=== PATIENT | female | born 1935 | race Caucasian/White ===

== ENCOUNTER 2018-04-06 09:58 | Observation (INO) | payer OTHER ==
--- NOTE | 2018-04-06 10:28 | EDPHY ---
HPI/HX/ROS/PE/MDM Narrative: CHIEF COMPLAINT: Increased weakness HISTORY OF PRESENT ILLNESS: The patient is a non-communicative 83 y/o female with a history of dementia arriving with her family for increased weakness. She is usually ambulatory and will get up at night. Over the past few weeks she has been walking "less vigorously". Around 2:30 AM, her noticed she was having difficulty walking. He tried to help support her but ultimately her legs gave out and she slumped to the floor. Her didn't want to wake their daughter so he provided her water and cared for her until 7:00AM and had their daughter help him get her up. Her daughter provided her with more water to try and rehydrate her as previous instances of similar symptoms have been due to dehydration. Her denies any fever, vomiting, indications she is in pain , indications she has difficulty urinating, or any other associated symptoms. No fever, chills, chest pain, shortness of breath, palpitations, vomiting, diarrhea, urinary complaints, headache, lightheadedness. REVIEW OF SYSTEMS: Aside from elements discussed in the HPI, a comprehensive 10-point review of systems was reviewed and is negative. PAST MEDICAL HISTORY: Dementia now non-communicative, hypertension SOCIAL HISTORY: and daughter at bedside, moved from [facility], lives in [place] VITAL SIGNS: Reviewed by me GENERAL: Elderly female, alert, appears in no respiratory distress. HEENT: Atraumatic. Eyes: No icterus, no injection. Mouth: Slightly dry mucous membranes. No erythema or lesions. Neck: supple with no adenopathy. LUNGS: Clear to auscultation bilaterally, no wheezes, rhonchi or rales. CARDIAC: Regular rate and rhythm, no rubs, murmurs or gallops. ABDOMEN: Soft, nontender, nondistended, bowel sounds normal. BACK: No CVA tenderness. Clumped vesicular/erythematous rash to the right of the lumbar spine. EXTREMITIES: Superficial linear lesions to upper thigh. No edema. Range of motion is normal throughout. NEURO: Alert and oriented, grossly nonfocal. SKIN: Warm and dry, no rash. PSYCHIATRIC: Normal mentation, no agitation. ED Course: 12-LEAD EKG: Please see the full report in [facility]. My interpretation: Sinus rhythm, nonspecific intraventricular conduction delay, minimal ST depression in anterolateral leads The patient presents with increased weakness. Similar episodes have been due to dehydration. On exam, she has a clumped vesicular rash on her right lumbar region, possibly shingles. Plan for CBC, basic metabolic panel, liver enzymes, lipase, urinalysis, EKG, chest X-ray to evaluate etiology of symptoms, and 1 L NS fluids for possible dehydration. 12:10 PM - Her workup is so far not indicative of a clear etiology. Her chest X- ray shows new ground glass regions in lungs from 20 months ago. Her labs show some electrolyte abnormalities and a white count. Plan for BNP and possible admit. I will have a nurse attempt to walk her to determine if her symptoms have improved with fluids. Shingles are still possible diagnosis. 1:00 PM- She as not been able to walk easily. I suggest she be admitted. 1:20 PM- I spoke to the hospitalist for admission for this patient. Dr. Gaviria will be the admitting physicians. The family agrees to this course of action. 2:00PM- CT ordered to identify a possible etiology. 2:40PM - CT was negative. - Data Points Laboratory Results: Laboratory Results 04/06/18 10:47 04/06/18 10:04 Medications Given: Amlodipine Besylate (Norvasc) 5 mg PO DAILY PAULA Stop: 10/04/18 08:59 Last Admin: 04/07/18 10:04 Dose: 5 mg Atorvastatin Calcium (Lipitor) 20 mg PO DAILY PAULA Stop: 10/04/18 08:59 Last Admin: 04/07/18 10:04 Dose: 20 mg Donepezil HCl (Aricept) 10 mg PO HS PAULA Stop: 10/03/18 20:59 Last Admin: 04/06/18 19:46 Dose: 10 mg Enoxaparin Sodium (Lovenox) 40 mg SC DAILY PAULA Stop: 10/04/18 08:59 Last Admin: 04/07/18 10:04 Dose: 40 mg Mirtazapine (Remeron) 7.5 mg PO HS PAULA Stop: 10/03/18 20:59 Last Admin: 04/06/18 19:45 Dose: 7.5 mg Trazodone HCl (Trazodone) 150 mg PO HS PAULA Stop: 10/03/18 20:59 Last Admin: 04/06/18 19:45 Dose: 150 mg Discontinued Medications Sodium Chloride (Ns) 1,000 mls @ 0 mls/hr IV ONCE ONE; Wide Open PRN Reason: Protocol Stop: 04/06/18 10:38 Last Admin: 04/06/18 11:24 Dose: 1,000 mls General Time Seen by Provider: 04/06/18 10:03 Initial Vital Signs: Initial Vital Signs Temperature (C) 36.4 C 04/06/18 10:06 Heart Rate 92 04/06/18 10:06 Respiratory Rate 16 04/06/18 10:06 Blood Pressure 149/105 H 04/06/18 10:06 O2 Sat (%) 94 04/06/18 10:06 O2 Delivery Mode Room Air Allergies/Adverse Reactions: No Known Allergies Allergy (Unverified 04/06/18 10:08) Home Medications: Medication Instructions Recorded Atorvastatin Calcium [Lipitor 20 20 mg PO DAILY 04/06/18 mg (*)] Donepezil HCl [Aricept 5 MG (*)] 10 mg PO HS 04/06/18 MIRTAZAPINE [Remeron 7.5 mg] 7.5 mg PO HS 04/06/18 amLODIPine BESYLATE [Norvasc 5 mg 5 mg PO DAILY 04/06/18 (*)] traZODone [traZODONE 50MG (*)] 150 mg PO HS 04/06/18 Acetaminophen [Tylenol 325mg (*)] 650 mg PO Q6 PRN tab 04/07/18 Departure - Departure Disposition: [facility] Inpatient Acute Clinical Impression: Weakness, Unable to walk, Electrolyte abnormality, SINGLES POSSIBLE Elevated white blood cell count Qualifiers: Leukocytosis type: unspecified Qualified Code(s): D72.829 - Elevated white blood cell count, unspecified Condition: Fair Report Scribed for: Karen Li Report Scribed by: Elza Beck Date of Report: 04/06/18 Time of Report: 13:07 Physician Review and Approval Statement: Portions of this note were transcribed by a medical collections. I personally performed a history, physical exam, medical decision making, and confirmed accuracy of information the transcribed note.
[2018-04-06] MEDS ORDERED: NS 1,000 ML IV ONE (10:37)
--- NOTE | 2018-04-06 10:57 | CPEKG ---
Heart Rate: 94 RR Interval: 638 P-R Interval: 192 QRSD Interval: 110 QT Interval: 400 QTC Interval: 501 P Elgin: 49 QRS Elgin: -29 T Wave Elgin: -18 EKG Severity - ABNORMAL ECG - EKG Impression: SINUS RHYTHM EKG Impression: NONSPECIFIC INTRAVENTRICULAR CONDUCTION DELAY EKG Impression: MINIMAL ST DEPRESSION, ANTEROLATERAL LEADS Electronically Signed By: Karen Li 06-Apr-2018 15:19:09
[2018-04-06 11:16] LABS: PLATELET COUNT 307 10^3/uL (150-400)
[2018-04-06] MEDS ORDERED: ONDANSETRON 4 MG/2 ML VIAL IVP PRN (14:55)
[2018-04-06] MEDS ORDERED: ACETAMINOPHEN 325 MG TAB PO PRN (14:55)
--- NOTE | 2018-04-06 15:16 | GHP ---
[f rep st] HISTORY AND PHYSICAL DATE OF ADMISSION: 04/06/2018 CHIEF COMPLAINT: Unable to walk. HISTORY OF PRESENT ILLNESS: This is an 83-year-old, nonverbal female with history of frontal tempora l lobe dementia and does not talk, as well as hypertension and dyslipidemia who is brought into the e mergency department by her family after she abruptly was unable to walk starting early this morning. Patient has been in her usual state of health. Her family reports that she has been eating normally . She is usually quite active, walking a couple miles per day. Around 2:30 this morning, she was no hugh to have difficulty walking. They were hoping she would get better, but she did not. She has not had any nausea or vomiting. She did have a loose stool yesterday. She has not complained of any ab dominal pain; however the patient's family states that she does not ever complain of any pain. PAST MEDICAL HISTORY: Frontal temporal lobe dementia, noncommunicative, hypertension, dyslipidemia. PAST SURGICAL HISTORY: Appendectomy as a child. HOME MEDICATIONS: Reviewed. Refer to Co-Work for details. ALLERGIES: No known drug allergies. SOCIAL HISTORY: She speaks Togolese. She lives with her daughter and . There is no history of alcohol, tobacco, or illicit drug use. FAMILY HISTORY: Reviewed and noncontributory. REVIEW OF SYSTEMS: Comprehensive 10-point review of systems was attempted, but unobtainable due to t he patient's noncommunicative status. PHYSICAL EXAMINATION: VITAL SIGNS: Blood pressure 139/109 heart rate 99, respiratory rate 16, O2 sa turation 92% on room air, temperature afebrile. GENERAL: No acute distress. HEAD: Normocephalic, atraumatic. EYES: PERRLA. Sclerae anicteric. MOUTH: Moist membranes. EARS: Tympanic membranes intact without signs of infection. NECK: Supple. No lymphadenopathy. CARDIOVASCULAR: S1, S2. No JVD. No lower extremity edema. PULMONARY: Lungs are clear. No wheezes, rales, or rhonchi. ABDOM EN: Soft, nontender, nondistended. No guarding or rebound tenderness. Negative Aguilera sign. EXTRE MITIES: No clubbing or cyanosis. NEURO: Cranial nerves 2-12 appear to be intact. Patient moves al l extremities. Face is symmetric. Patient does not follow commands making a thorough neurologic exa m difficult. SKIN: There is a cluster of erythematous plaques on the right back at the level of T10 dermatome and also 1 erythematous spot at the T8 dermatome. DIAGNOSTIC DATA: WBC is 15.2, hemoglobin 13.6, hematocrit 39.7, platelets 307. Sodium 135, potassiu m 5.1, chloride 19, BUN 21, creatinine 0.8, glucose 138. AST 120, ALT 29. Troponin 0.012. Alkaline phosphatase elevated at 312, total protein 8.7, albumin 5.1. BNP was normal. Lipase was normal. U A: 1+ blood, but otherwise unremarkable. Chest x-ray, which I reviewed and personally visualized, shows diffuse peribronchial thickening with new ground-glass opacities in the left lung apex and left base. EKG, which I visualized and personally interpreted, sinus rhythm, rate 94 beats per minute. No acute ischemic changes. Computer read minimal ST depression in the anterior lateral leads, which I doubt is contributing to her presentation. ASSESSMENT: This is an 83-year-old female with history of dementia and unable to communicate present ing with: 1. Weakness and unable to walk of unclear etiology. See below. 2. Leukocytosis without any obvious source of infection. 3. Uncontrolled hypertension. 4. Mildly elevated potassium. 5. Elevated AST with elevated total bilirubin and alkaline phosphatase concerning for biliary diseas e. 6. Ground-glass opacities in the left lung apex and left base of unclear significance. Question asp iration. 7. Erythematous macules on back. Doubt shingles given that there on multiple dermatomes, but will d o a viral culture to further address this. 8. Anterolateral ST depression. PLAN: 1. Place on observation. 2. Abdominal ultrasound to evaluate for stones. 3. Monitor potassium. 4. Will hold off on antibiotics for now pending further workup. We will send blood cultures. 5. Varicella culture. 6. Consider chest CT and further workup for aspiration as indicated. We will ask for a Speech Thera py consultation. 7. The patient's family requests that she be DNR status. /[id number]/MODL
[2018-04-06] MEDS ORDERED: MIRTAZAPINE 15 MG TAB PO SCH (21:00)
[2018-04-06] MEDS ORDERED: DONEPEZIL HCL 5 MG TAB PO SCH (21:00)
[2018-04-07 05:15] LABS: PLATELET COUNT 291 10^3/uL (150-400)
[2018-04-07] MEDS ORDERED: amLODIPine BESYLATE 5 MG TAB PO SCH (09:00)
[2018-04-07] MEDS ORDERED: ENOXAPARIN 40 MG/0.4 ML SYR SC SCH (09:00)
[2018-04-07] MEDS ORDERED: ATORVASTATIN CALCIUM 20 MG TAB PO SCH (09:00)
[2018-04-07 11:57] VITALS: BP 122/98
--- NOTE | 2018-04-07 13:26 | PDIAF ---
- Diagnosis Diagnosis: weakness Code Status: Do Not Resuscitate - Medication Management Discharge Medications: Medications to Continue on Transfer Atorvastatin Calcium [Lipitor 20 mg (*)] 20 mg PO DAILY 04/06/18 [Last Taken ] Donepezil HCl [Aricept 5 MG (*)] 10 mg PO HS 04/06/18 [Last Taken 04/05/18] MIRTAZAPINE [Remeron 7.5 mg] 7.5 mg PO HS 04/06/18 [Last Taken 04/05/18] amLODIPine BESYLATE [Norvasc 5 mg (*)] 5 mg PO DAILY 04/06/18 [Last Taken ] traZODone [traZODONE 50MG (*)] 150 mg PO HS 04/06/18 [Last Taken 04/05/18] Acetaminophen [Tylenol 325mg (*)] 650 mg PO Q6 PRN tab 04/07/18 [Last Taken Unknown] Discharge Medications: Refer to the Discharge Home Medication list for PRN reason. PICC Care - Routine: N/A - Orders Services needed: Home Care, Physical Therapy, Occupational Therapy Home Care Face to Face: I certify that this patient was under my care and that I had the required [id number] encounter meeting the encounter requirements on the discharge day. My findings support the fact that the patient is homebound as defined in Home Care Face to Face Continued: CMS Chapter 7 Medicare Benefits Manual 30.1.1 , The condition of the patient is such that there exists a normal inability to leave home and consequently, leaving home would require a considerable and taxing effort. Isolation Type: Airborne Isolation, Contact Isolation Diet Recommendation: no restrictions on diet Diet Texture: Regular Texture Diet, Thin Liquids, Meds Whole in Puree - Follow Up Care Current Providers and Referrals: Patient,NotPresent [Unknown] - As per Instructions
--- NOTE | 2018-04-07 14:01 | GDS ---
[f rep st] DISCHARGE SUMMARY DISCHARGE DIAGNOSES: 1. Weakness. 2. Leukocytosis. 3. Elevated liver enzymes. 4. Uncontrolled hypertension. 5. Dehydration. STUDIES AND PROCEDURES: 1. CT of the head. 2. Abdominal ultrasound. PHYSICAL EXAM: GENERAL: The patient is alert. VITAL SIGNS: Afebrile at 36.5, pulse of 94, respira tory rate 16. Blood pressure is 122/98. She is saturating greater than 90% on room air. I have seen and evaluated the patient on the day of discharge. HOSPITAL COURSE: The patient is an 83-year-old female who presented to the emergency room with compl aints of inability to walk. She was evaluated and diagnosed with: 1. Dehydration. During this hospitalization, she received some IV fluids. Her dehydration has reso lved. 2. Weakness, with inability to walk. The etiology of this was unclear at the time of admission. Ho wever, the patient has been evaluated by Physical Therapy, as well as Occupational therapy, and it ap pears that she is close to her baseline. It is recommended that she obtain a walker, which her brett rowan will do for her. She will also have home care in the outpatient setting. 3. Leukocytosis. There is no obvious source of infection. The patient possibly has a viral etiolog y or secondary to the patient's dehydration. Her leukocytosis is improving and almost returned to no rmal. 4. Uncontrolled hypertension. This is resolved. 5. Mild elevated AST and total bilirubin. The patient received an abdominal ultrasound that was wit hin normal limits. No signs of stones or abnormalities. Her liver enzymes have resolved today. 6. Erythematous macules. These have tested negative for VSV and is likely bug bite or other etiolog y. No further intervention warranted. DISPOSITION: The patient will be discharged home with her and her daughter. Home health car e has been arranged with Physical Therapy, as well as Occupational Therapy. Further evaluation will be done in the outpatient setting by the patient's primary care physician. DISCHARGE MEDICATIONS: Please refer to EMR form. I have not discontinued the patient's previously p rescribed home medications to the best of my knowledge. /[id number]/MODL
--- NOTE | 2018-04-07 16:48 | ASMTCMCOM ---
CM Note CM Note Notes: Spoke w/pt's daughter and , they are agreeable to home care, pt has dementia but has family around 24/7. CM sent referrals to homecare agencies that take [employer]. DC Plan: Homecare Date Signed: 04/07/2018 02:44 PM Electronically Signed By:Carolin Fuller RN
--- NOTE | 2018-04-07 16:48 | ASMTLACE ---
LACE Length of stay for Answers: 1 day current admission Comorbidities - select Answers: Dementia all that apply Other Notes: HTN # of Emergency department Answers: 1-2 visits in the last 6 months Score: 6 Date Signed: 04/07/2018 04:47 PM Electronically Signed By:Carolin Fuller RN
--- NOTE | 2018-04-08 16:31 | ASMTCMCOM ---
CM Note CM Note Notes: CM attempted to find a [facility] that will accept [employer], unsuccessful today. CM left message for patient's and also notified patient's daughter of above. Daughter states she will speak with her father and follow-up with CM should they need further assistance with this. She indicated they may call [employer] and ask for some guidance. Date Signed: 04/08/2018 04:30 PM Electronically Signed By:Josi Giang RN
== END 2018-04-07 15:46 | disposition home health service (06) ==
LOC: EDUNIT# → F3N 14:48
PROVIDERS: ADMIT Family Medicine; ATTEND Hospitalist
DX: R53.1 Weakness (principal); R26.2 Difficulty in walking, not elsewhere classified; D72.829 Elevated white blood cell count, unspecified; R94.5 Abnormal results of liver function studies; L53.9 Erythematous condition, unspecified; I10 Essential (primary) hypertension; E86.0 Dehydration; E87.8 Other disorders of electrolyte and fluid balance, not elsewhere classified; R91.8 Other nonspecific abnormal finding of lung field; F03.90 Unspecified dementia, unspecified severity, without behavioral disturbance, psychotic disturbance, mood disturbance, and anxiety; E78.5 Hyperlipidemia, unspecified; Z66 Do not resuscitate
CPT/HCPCS: 70450; 71046; 76705; 92610; 93005; 97116; 97162; 97166; G0378; G8987; G8988; J1650; 87798-90

== ENCOUNTER 2018-11-29 15:13 | Inpatient (IN) | payer OTHER ==
--- NOTE | 2018-11-29 15:49 | EDPHY ---
H & P Stated Complaint: fall not sure if was syncope facial trauma pt with dementia at baseline Time Seen by Provider: 11/29/18 15:46 - Personal History Current Tetanus Diphtheria and Acellular Pertussis (TDAP): Yes - Medical/Surgical History Hx Asthma: No Hx Chronic Respiratory Disease: No Hx Diabetes: No Hx Cardiac Disease: Yes Hx Renal Disease: No Hx Cirrhosis: No Hx Alcoholism: No Hx HIV/AIDS: No Hx Splenectomy or Spleen Trauma: No Other PMH: High cholesterol, HTN, dementia and anxiety - Social History Smoking Status: Never smoked Constitutional: Initial Vital Signs Temperature (C) 36.6 C 11/29/18 15:21 Heart Rate 109 H 11/29/18 15:21 Respiratory Rate 18 11/29/18 15:21 Blood Pressure 163/99 H 11/29/18 15:21 O2 Sat (%) 92 11/29/18 15:21 O2 Delivery Mode Room Air Allergies/Adverse Reactions: No Known Allergies Allergy (Verified 11/29/18 15:20) Home Medications: Medication Instructions Recorded Atorvastatin Calcium [Lipitor 20 20 mg PO DAILY 04/06/18 mg (*)] Donepezil HCl [Aricept 5 MG (*)] 10 mg PO HS 04/06/18 MIRTAZAPINE [Remeron 7.5 mg] 7.5 mg PO HS 04/06/18 amLODIPine BESYLATE [Norvasc 5 mg 5 mg PO DAILY 04/06/18 (*)] traZODone [traZODONE 50MG (*)] 150 mg PO HS 04/06/18 Acetaminophen [Tylenol 325mg (*)] 650 mg PO Q6 PRN tab 04/07/18 Medical Decision Making - Diagnostics Imaging Results: Imaging Impressions Head CT 11/29/18 15:49 Impression: 1. Displaced nasal bone fracture. 2. Age-appropriate generalized cerebral volume loss with sequela of chronic microvascular ischemic disease. Findings and recommendations discussed with Leno Little MD's tutoring assistant at 1641 hour, 11/29/2018. Imaging: Discussed imaging studies w/ call or contact centre manager Radiologist, I viewed and interpreted images myself ED Course/Re-evaluation: CHIEF COMPLAINT: Fall, nose injury HISTORY OF PRESENT ILLNESS: The patient is an 83 y/o female with a history of dementia arriving with her for evaluation of a facial injury secondary to a fall this afternoon. Her says, "from her dementia she has no capacity to defend herself and just goes down" without catching herself. This is the second time this has happened in the last month or so. Today they were walking on a concrete trail when she "just went down." She did not report preceding symptoms like chest pain or lightheadedness to her . She did not lose consciousness per , but was "stunned" and it took about 10 minutes for her to roll over and get up off the ground. They have walked for many years without issues like this previously. He does not know why she falls and it does not sound like she's been evaluated for these falls before. No apparent tooth injury, extremity injuries, weakness, paresthesias. No report of recent illness. No anticoagulant use. History comes from due to patient' s dementia. REVIEW OF SYSTEMS: A comprehensive 10 system review of systems is otherwise negative aside from elements mentioned in the history of present illness and medical decision making. PHYSICAL EXAM: HR, BP, O2 Sat, RR. Temp noted General Appearance: Alert, well hydrated, and non-toxic appearing. Head: Atraumatic without scalp tenderness or obvious injury Eyes: Pupils equal, round, reactive to light and accommodation, EOMI, no trauma , no injection. Ears: Clear bilaterally, no perforation, normal landmarks Nose: Macerated wound to bridge of nose, bleeding from both nares. Throat: There is no erythema or exudates, no lesions, normal tonsils, mucus membranes moist. Neck: Supple, non-tender, no lymphadenopathy. Respiratory: No retractions, no distress, no wheezes, and no accessory muscle use. Lungs are clear to auscultation bilaterally. Cardiovascular: Regular rate and rhythm, no murmurs, rubs, or gallops. Good capillary refill all extremities. Gastrointestinal: Abdomen is soft, non-tender, non-distended, no masses, no rebound, no guarding, no peritoneal signs. Musculoskeletal: Normal active ROM of all extremities, atraumatic. Dried blood on both hands. Neurological: Alert. Standing in the room. Moving all extremities. At baseline mentation per . Skin: No rashes, good turgor, no nodules on palpation. PAST MEDICAL HISTORY: Dementia, hypertension, high cholesterol, anxiety PAST SURGICAL HISTORY: Noncontributory SOCIAL HISTORY: at bedside. Lives in [place]. Retired. DIAGNOSTICS/PROCEDURES/CRITICAL CARE TIME: The 12 lead EKG was interpreted by myself. See hard copy and/or "tracemaster" electronic copy for interpretation. Head CT: nasal fracture, no intracranial hemorrhage. DIFFERENTIAL DIAGNOSIS: The differential diagnosis for the patient's head injury included but was not limited to concussion, skull fracture, intra- parenchymal contusion, subarachnoid, subdural and epidural hematoma. MEDICAL DECISION MAKING: This is an 83 y/o female with dementia who presents with nasal injuries secondary to a fall of unknown cause this afternoon. This is her second fall like this in the last month and her states she does not use her hands to catch herself when these happen. She has a macerated nasal bridge with blood from both nares. No other trauma noted. Apart from baseline confusion, no focal neuro deficits noted. Plan for IV, labs, head CT, EKG, and likely admission. 50mg IV Ketamine and 1mg IV Ativan ordered prior to head CT so patient can lie still. Spoke with hospitalist service. Dr. Ramos accepts admission. 1718: Consulted with MOISE Schmitz, ENT. They will consult during admission and decide on antibiotics for open fracture. - Data Points Laboratory Results: Laboratory Results 11/29/18 16:00 11/29/18 16:00 11/29/18 11/29/18 11/29/18 16:00 16:00 16:00 WBC RBC Hgb Hct MCV MCH MCHC RDW Plt Count MPV Neut % (Auto) Lymph % (Auto) [place] % (Auto) Eos % (Auto) Baso % (Auto) Nucleat RBC Rel Count Absolute Neuts (auto) Absolute Lymphs (auto) Absolute Monos (auto) Absolute Eos (auto) Absolute Basos (auto) Absolute Nucleated RBC Immature Gran % Immature Gran # PT 12.1 SEC SEC (12.0-15.0) INR 0.87 (0.83-1.16) APTT 21.7 SEC L SEC (23.0-38.0) Sodium 138 mEq/L mEq/L (135-145) Potassium 4.2 mEq/L mEq/L (3.5-5.2) Chloride 109 mEq/L mEq/L (97-110) Carbon Dioxide 21 mEq/l L mEq/l (22-31) Anion Gap 8 mEq/L mEq/L (6-14) BUN 25 mg/dL H mg/dL (7-23) Creatinine 1.0 mg/dL mg/dL (0.6-1.0) Estimated GFR 53 Glucose 140 mg/dL H mg/dL (70-100) Calcium 10.1 mg/dL mg/dL (8.5-10.4) Troponin I Pending 11/29/18 16:00 WBC 11.34 10^3/uL H 10^3/uL (3.80-9.50) RBC 4.45 10^6/uL 10^6/uL (4.18-5.33) Hgb 14.0 g/dL g/dL (12.6-16.3) Hct 41.6 % % (38.0-47.0) MCV 93.5 fL fL (81.5-99.8) MCH 31.5 pg pg (27.9-34.1) MCHC 33.7 g/dL g/dL (32.4-36.7) RDW 12.7 % % (11.5-15.2) Plt Count 356 10^3/uL 10^3/uL (150-400) MPV 11.2 fL fL (8.7-11.7) Neut % (Auto) 77.1 % H % (39.3-74.2) Lymph % (Auto) 12.8 % L % (15.0-45.0) Denver % (Auto) 8.0 % % (4.5-13.0) Eos % (Auto) 1.3 % % (0.6-7.6) Baso % (Auto) 0.4 % % (0.3-1.7) Nucleat RBC Rel Count 0.0 % % (0.0-0.2) Absolute Neuts (auto) 8.74 10^3/uL H 10^3/uL (1.70-6.50) Absolute Lymphs (auto) 1.45 10^3/uL 10^3/uL (1.00-3.00) Absolute Monos (auto) 0.91 10^3/uL H 10^3/uL (0.30-0.80) Absolute Eos (auto) 0.15 10^3/uL 10^3/uL (0.03-0.40) Absolute Basos (auto) 0.04 10^3/uL 10^3/uL (0.02-0.10) Absolute Nucleated RBC 0.00 10^3/uL 10^3/uL (0-0.01) Immature Gran % 0.4 % % (0.0-1.1) Immature Gran # 0.05 10^3/uL 10^3/uL (0.00-0.10) PT INR APTT Sodium Potassium Chloride Carbon Dioxide Anion Gap BUN Creatinine Estimated GFR Glucose Calcium Troponin I Medications Given: Discontinued Medications Ketamine HCl (Ketamine) 50 mg IVP EDNOW ONE Stop: 11/29/18 16:15 Last Admin: 11/29/18 16:30 Dose: 50 mg Lorazepam (Ativan Injection) 1 mg IVP EDNOW ONE Stop: 11/29/18 16:15 Last Admin: 11/29/18 16:30 Dose: 1 mg Departure - Departure Disposition: [facility] Inpatient Acute Clinical Impression: Fall Qualifiers: Encounter type: initial encounter Qualified Code(s): W19.XXXA - Unspecified fall, initial encounter Nasal injury Qualifiers: Encounter type: initial encounter Qualified Code(s): S09.92XA - Unspecified injury of nose, initial encounter Condition: Fair Report Scribed for: Leno Little Report Scribed by: Lacie Garcia Date of Report: 11/29/18 Time of Report: 16:14
[2018-11-29 16:08] LABS: PLATELET COUNT 356 10^3/uL (150-400)
[2018-11-29] MEDS ORDERED: KETAMINE 500 MG/10 ML VIAL IVP ONE (16:14)
[2018-11-29] MEDS ORDERED: LORazepam 2 MG/ML INJ IVP ONE (16:14)
[2018-11-29] MEDS ORDERED: KETAMINE 200 MG/20 ML VIAL ONE (16:15)
[2018-11-29] MEDS ORDERED: LORazepam 2 MG/ML INJ ONE (16:15)
[2018-11-29 16:19] LABS: INR 0.87 (0.83-1.16); PROTIME(PATIENT) 12.1 SEC (12.0-15.0)
[2018-11-29] MEDS ORDERED: ONDANSETRON 4 MG/2 ML VIAL IVP PRN (16:55)
[2018-11-29] MEDS ORDERED: ONDANSETRON DISINTEGRATING 4 MG TAB PO PRN (16:55)
[2018-11-29] MEDS ORDERED: ACETAMINOPHEN 325 MG TAB PO PRN (16:55)
--- NOTE | 2018-11-29 17:03 | CPEKG ---
Test Reason : OPEN Blood Pressure : / mmHG Vent. Rate : 102 BPM Atrial Rate : 101 BPM P-R Int : 180 ms QRS Dur : 088 ms QT Int : 348 ms P-R-T Axes : 066 -05 043 degrees QTc Int : 454 ms Sinus tachycardia Minimal ST depression, lateral leads Confirmed by Leno Little ([id number]) on 11/29/2018 5:03:23 PM Referred By: Confirmed By:Leno Little
--- NOTE | 2018-11-29 17:27 | PDGENHP ---
Addendum entered and electronically signed by Paris Pradhan NP 11/29/18 20:07 : Code status changed to DNR per evening RN taking care of pt. reports DNR status. Original Note: <Paris Pradhan - Last Filed: 11/29/18 17:55> History and Physical - Chief Complaint Syncope - History of Present Illness This is an 83 y/o female with history of severe dementia presenting after syncopal episode today. She is non-communicative d/t her dementia. Her , her caregiver, details the event today. They both were walking a trail as they normally do. She fell and because her dementia, did not put her hands out to break her fall. She fell directly onto her face and lost consciousness for approximately 3-5 minutes. She slowly regained consciousness. She had a similar episode a month prior. No preceding symptoms as she cannot communicate. This is my first encounter with the pt. She was seen in the emergency room. No apparent respiratory distress, epistaxis it appears as well as open nose wound. Able to move all extremities with no difficulty. She is being admitted for further diagnostic work-up and monitoring. Past Medical/Surgical History 1. Dementia (Diagnosed 2013; however the believes it should have been diagnosed around 2010) 2. Hyperlipidemia 3. Hypertension 4. Anxiety Social 1. to , Christos. They both live with their daughter. Daughter is on one floor, and the couple are on another floor. 2. No alcohol or tobacco use. No illicit drug use. 3. Moved from [place], [place] 2 years ago to be closer to their daughter. History Information - Allergies/Home Medication List Allergies/Adverse Reactions: No Known Allergies Allergy (Verified 11/29/18 15:20) Home Medications: Atorvastatin Calcium [Lipitor 20 mg (*)] 20 mg PO DAILY 04/06/18 [Last Taken 08:00] Donepezil HCl [Aricept 5 MG (*)] 10 mg PO HS 04/06/18 [Last Taken 11/29/18 08:00 ] MIRTAZAPINE [Remeron 7.5 mg] 7.5 mg PO DAILY 04/06/18 [Last Taken 11/29/18 08:00 ] amLODIPine BESYLATE [Norvasc 5 mg (*)] 5 mg PO DAILY 04/06/18 [Last Taken 08:00] traZODone [traZODONE 50MG (*)] 100 mg PO HS 04/06/18 [Last Taken 11/28/18 21:00] Cholecalciferol Vit D3 [Vitamin D3 (*)] 1,000 units PO DAILY 11/29/18 [Last Taken 11/29/18 08:00] Herbals/Supplements -Info Only 1 ea PO DAILY 11/29/18 [Last Taken Unknown] Multivitamins [Multivitamin (*)] 1 tab PO DAILY 11/29/18 [Last Taken 11/29/18 08 :00] I have personally reviewed and updated: family history, medical history, social history, surgical history Past Medical History: See HPi list - Surgical History Additional surgical history: See HPI list - Family History Positive for: non-pertinent - Social History Smoking Status: Never smoked Alcohol Use: None Drug Use: None Review of Systems Review of Systems: ROS: 10pt was reviewed & negative except for what was stated in HPI & below Constitutional: Reports: recent injury EENMT: Reports: other (Unable to communicate) Cardiac: Reports: other (Unable to communicate) Respiratory: Reports: other (Unable to communicate) Gastrointestinal: Reports: other (Unable to communicate - however, reports normal bowel movements) Genitourinary: Reports: other (Unable to communicate - however reports normal urination) Muscolosketal: Reports: other (Unable to communicate) Skin: Reports: no symptoms Neurological: Reports: other (Unable to communicate) Hematologic/Lymphatic: Reports: no symptoms Immunologic/Allergy: Reports: no symptoms Physical Exam Physical Exam: Lab data and imaging were reviewed Temp Pulse Resp BP Pulse Ox 36.6 C 96 20 158/89 H 92 11/29/18 15:21 11/29/18 17:00 11/29/18 17:00 11/29/18 17:00 11/29/18 17:00 Constitutional: no apparent distress, uncomfortable Eyes: PERRL, anicteric sclera, EOMI Ears, Nose, Mouth, Throat: moist mucous membranes, hearing normal, ears appear normal, no oral mucosal ulcers Cardiovascular: regular rate and rhythym, no murmur, rub, or gallop, tachycardia , No edema Peripheral Pulses: 2+: dorsalis-pedis (R) (Radial 2+), dorsalis-pedis (L) ( Radial 2+) Respiratory: reduced air movement Gastrointestinal: normoactive bowel sounds, soft, non-tender abdomen, no palpable masses Genitourinary: no bladder fullness, no bladder tenderness Skin: warm, normal color, no fluctuance, no induration, abrasion (Nose), No mottled Musculoskeletal: normal joint ROM Neurologic: other (Unable to communicate) Psychiatric: other (Unknown) Lymph, Heme, Immunologic: no cervical LAD, no supraclavicular LAD Lab Data & Imaging Review 11/29/18 16:00 11/29/18 16:00 WBC 11.34 10^3/uL (3.80-9.50) H 11/29/18 16:00 RBC 4.45 10^6/uL (4.18-5.33) 11/29/18 16:00 Hgb 14.0 g/dL (12.6-16.3) 11/29/18 16:00 Hct 41.6 % (38.0-47.0) 11/29/18 16:00 MCV 93.5 fL (81.5-99.8) 11/29/18 16:00 MCH 31.5 pg (27.9-34.1) 11/29/18 16:00 MCHC 33.7 g/dL (32.4-36.7) 11/29/18 16:00 RDW 12.7 % (11.5-15.2) 11/29/18 16:00 Plt Count 356 10^3/uL (150-400) 11/29/18 16:00 MPV 11.2 fL (8.7-11.7) 11/29/18 16:00 Neut % (Auto) 77.1 % (39.3-74.2) H 11/29/18 16:00 Lymph % (Auto) 12.8 % (15.0-45.0) L 11/29/18 16:00 Harnett % (Auto) 8.0 % (4.5-13.0) 11/29/18 16:00 Eos % (Auto) 1.3 % (0.6-7.6) 11/29/18 16:00 Baso % (Auto) 0.4 % (0.3-1.7) 11/29/18 16:00 Nucleat RBC Rel Count 0.0 % (0.0-0.2) 11/29/18 16:00 Absolute Neuts (auto) 8.74 10^3/uL (1.70-6.50) H 11/29/18 16:00 Absolute Lymphs (auto) 1.45 10^3/uL (1.00-3.00) 11/29/18 16:00 Absolute Monos (auto) 0.91 10^3/uL (0.30-0.80) H 11/29/18 16:00 Absolute Eos (auto) 0.15 10^3/uL (0.03-0.40) 11/29/18 16:00 Absolute Basos (auto) 0.04 10^3/uL (0.02-0.10) 11/29/18 16:00 Absolute Nucleated RBC 0.00 10^3/uL (0-0.01) 11/29/18 16:00 Immature Gran % 0.4 % (0.0-1.1) 11/29/18 16:00 Immature Gran # 0.05 10^3/uL (0.00-0.10) 11/29/18 16:00 PT 12.1 SEC (12.0-15.0) 11/29/18 16:00 INR 0.87 (0.83-1.16) 11/29/18 16:00 APTT 21.7 SEC (23.0-38.0) L 11/29/18 16:00 Sodium 138 mEq/L (135-145) 11/29/18 16:00 Potassium 4.2 mEq/L (3.5-5.2) 11/29/18 16:00 Chloride 109 mEq/L (97-110) 11/29/18 16:00 Carbon Dioxide 21 mEq/l (22-31) L 11/29/18 16:00 Anion Gap 8 mEq/L (6-14) 11/29/18 16:00 BUN 25 mg/dL (7-23) H 11/29/18 16:00 Creatinine 1.0 mg/dL (0.6-1.0) 11/29/18 16:00 Estimated GFR 53 11/29/18 16:00 Glucose 140 mg/dL (70-100) H 11/29/18 16:00 Calcium 10.1 mg/dL (8.5-10.4) 11/29/18 16:00 Assessment & Plan Plan: 83 y/o female with history of dementia presents after syncopal event, precipitating factors unknown. 1. Syncopal episode with unknown origin -Head CT w/o contrast is negative for any acute hemorrhage or acute processes. -Checking troponin/TSH. Checking lipid panel tomorrow -Echo pending -Cont tele/pulse ox monitoring -Repeat EKG tonight -PT/OT to evaluate 2. Nasal fracture as noted on Head CT -Spoke to Dr. Little; he has consulted with ENT (MOISE Schmitz). They will consult during admission and decide on appropriate antibiotics. -Pain management PO/IVP PRN 3. Hypertension: she may continue her home medication of amlodipine 4. Dementia: this is quite severe. Her baseline is non-communicative form. Per , she spends majority of her waking time watching television and they will also go for walks. Continue her home medications of donepezil. 5. Anxiety/depression: on remeron and trazadone Will reconcile home medications once verified by pharmacy Diet: Regular after one time RN swallow eval Code: Full VTE ppx: SCDs Dispo: Admit to inpatient <Deepak Ramos - Last Filed: 11/29/18 21:49> History and Physical - History of Present Illness Review of Systems Review of Systems: Physical Exam Physical Exam: Temp Pulse Resp BP Pulse Ox 37.0 C 94 18 192/118 H 93 11/29/18 21:07 11/29/18 21:07 11/29/18 21:07 11/29/18 21:07 11/29/18 21:07 Lab Data & Imaging Review 11/29/18 16:00 11/29/18 16:00 WBC 11.34 10^3/uL (3.80-9.50) H 11/29/18 16:00 RBC 4.45 10^6/uL (4.18-5.33) 11/29/18 16:00 Hgb 14.0 g/dL (12.6-16.3) 11/29/18 16:00 Hct 41.6 % (38.0-47.0) 11/29/18 16:00 MCV 93.5 fL (81.5-99.8) 11/29/18 16:00 MCH 31.5 pg (27.9-34.1) 11/29/18 16:00 MCHC 33.7 g/dL (32.4-36.7) 11/29/18 16:00 RDW 12.7 % (11.5-15.2) 11/29/18 16:00 Plt Count 356 10^3/uL (150-400) 11/29/18 16:00 MPV 11.2 fL (8.7-11.7) 11/29/18 16:00 Neut % (Auto) 77.1 % (39.3-74.2) H 11/29/18 16:00 Lymph % (Auto) 12.8 % (15.0-45.0) L 11/29/18 16:00 Harnett % (Auto) 8.0 % (4.5-13.0) 11/29/18 16:00 Eos % (Auto) 1.3 % (0.6-7.6) 11/29/18 16:00 Baso % (Auto) 0.4 % (0.3-1.7) 11/29/18 16:00 Nucleat RBC Rel Count 0.0 % (0.0-0.2) 11/29/18 16:00 Absolute Neuts (auto) 8.74 10^3/uL (1.70-6.50) H 11/29/18 16:00 Absolute Lymphs (auto) 1.45 10^3/uL (1.00-3.00) 11/29/18 16:00 Absolute Monos (auto) 0.91 10^3/uL (0.30-0.80) H 11/29/18 16:00 Absolute Eos (auto) 0.15 10^3/uL (0.03-0.40) 11/29/18 16:00 Absolute Basos (auto) 0.04 10^3/uL (0.02-0.10) 11/29/18 16:00 Absolute Nucleated RBC 0.00 10^3/uL (0-0.01) 11/29/18 16:00 Immature Gran % 0.4 % (0.0-1.1) 11/29/18 16:00 Immature Gran # 0.05 10^3/uL (0.00-0.10) 11/29/18 16:00 PT 12.1 SEC (12.0-15.0) 11/29/18 16:00 INR 0.87 (0.83-1.16) 11/29/18 16:00 APTT 21.7 SEC (23.0-38.0) L 11/29/18 16:00 Sodium 138 mEq/L (135-145) 11/29/18 16:00 Potassium 4.2 mEq/L (3.5-5.2) 11/29/18 16:00 Chloride 109 mEq/L (97-110) 11/29/18 16:00 Carbon Dioxide 21 mEq/l (22-31) L 11/29/18 16:00 Anion Gap 8 mEq/L (6-14) 11/29/18 16:00 BUN 25 mg/dL (7-23) H 11/29/18 16:00 Creatinine 1.0 mg/dL (0.6-1.0) 11/29/18 16:00 Estimated GFR 53 11/29/18 16:00 Glucose 140 mg/dL (70-100) H 11/29/18 16:00 Calcium 10.1 mg/dL (8.5-10.4) 11/29/18 16:00 Troponin I < 0.012 ng/mL (0.000-0.034) 11/29/18 16:00 TSH 3.580 uIU/mL (0.465-4.680) 11/29/18 16:00 Assessment & Plan Assessment: Fall (Acute) Nasal injury (Acute) Plan: Patient seen and evaluated independently and care plan reviewed with HAROLDO Pradhan, agree with her assessment and plan as outlined above. Please see separate documentation for further details.
--- NOTE | 2018-11-29 18:15 | SOAPPROG ---
SOAP Progress Note Assessment/Plan: Assessment: Open nasal fx Wound cleaned and debrided in ED Steristrips placed over wound Context of dementia, pt non verbal Case discussed with Dr Quezada Plan: Discussed plan with pt's . They will f/u in our office in 5 days. Gave our card with instructions to follow up in office. 11/29/18 18:10 11/29/18 18:15 Subjective: Pt with hx of fall and hit face on ground causing open nasal fx. Seen in ED and admitted to floor Pt non verbal. No signs of acute pain. Objective: Vital Signs Temp Pulse Resp BP Pulse Ox 36.6 C 96 20 158/89 H 92 11/29/18 15:21 11/29/18 17:00 11/29/18 17:00 11/29/18 17:00 11/29/18 17:00 PT 12.1 SEC (12.0-15.0) 11/29/18 16:00 INR 0.87 (0.83-1.16) 11/29/18 16:00 Pt resting comfortably in bed. Curvilinear lateral oriented laceration to dorsum of nose. Minimal oozing from site. Steristrips in place. - Pending Discharge Pending Discharge Within 24 Hours: Yes Pending Discharge Date: 11/30/18 Pending Discharge Time: 11:00 ICD10 Worksheet Patient Problems: Problems Problem Status Onset Fall Acute Nasal injury Acute Electrolyte abnormality Acute Elevated white blood cell count Acute Unable to walk Acute Weakness Acute
[2018-11-29] MEDS ORDERED: hydrALAZINE 20 MG/ML VIAL IVP PRN (21:43)
--- NOTE | 2018-11-29 21:53 | HOSPPROG ---
Hospitalist Progress Note Assessment/Plan: 83 yo F with hx of fronto temporal dementia, non verbal, as well as htn/hld presenting with several episodes of falling at home # recurrent falls: per she has had a history of falls but seems to be falling more recently when this was not an issue in the past, she had a fall today right on her face, uncertain if she had LOC and if this represents syncopal event. Monitoring on tele, echo in am, initial trop negative--will trend overnight. PT/OT and CM to be involved. This certainly could represent progression of her severe dementia # open nasal fracture: evaluated by ENT, wound cleaned and dressed and patient will f/u with ENT as an outpatient # dementia: quite advanced, non verbal at baseline, notes that despite that her gait had been steady until recently and she eats and drinks well, as above # htn, uncontrolled: BP has been elevated since arrival, will resume home amlodipine with addition of prn hydralazine for now # HLD: will resume atorvastatin # IP status, suspect she will require > 48 hours stay for eval/mgmt of above Patient new to my care. Care plan reviewed with ER doctor as above. Care plan reviewed with HAROLDO Pradhan, please see her H&P for further details. Objective: Vital Signs Temp Pulse Resp BP Pulse Ox 37.0 C 94 18 192/118 H 93 11/29/18 21:07 11/29/18 21:07 11/29/18 21:07 11/29/18 21:07 11/29/18 21:07 PT 12.1 SEC (12.0-15.0) 11/29/18 16:00 INR 0.87 (0.83-1.16) 11/29/18 16:00 ICD10 Worksheet Patient Problems: Problems Problem Status Onset Weakness Acute Unable to walk Acute Elevated white blood cell count Acute Electrolyte abnormality Acute Fall Acute Nasal injury Acute
[2018-11-29] MEDS: traZODone 50 MG TAB PO SCH (22:17)
[2018-11-29] MEDS: DONEPEZIL HCL 5 MG TAB PO SCH (22:17)
[2018-11-30] MEDS: ATORVASTATIN CALCIUM 20 MG TAB PO SCH (08:22)
[2018-11-30] MEDS: MIRTAZAPINE 15 MG TAB PO SCH (08:22)
[2018-11-30] MEDS: CHOLECALCIFEROL VIT D3 1,000 UNITS TAB PO SCH (08:23)
[2018-11-30] MEDS: amLODIPine BESYLATE 5 MG TAB PO SCH (08:23)
[2018-11-30] MEDS: MULTIVITAMINS 1 EACH TAB PO SCH (08:23)
[2018-11-30] MEDS ORDERED: Herbals/Supplements -Info Only PO SCH (09:00)
--- NOTE | 2018-11-30 09:30 | PDMN ---
Medical Necessity Medical necessity: MCG M340 syncope: recurrent fall with open nasal fx. , elevated BP high of 192/118 X2, pt with sig. dementia, non verbal anticipate > 2 MN ongoing med nec care- further monitoring -EKG, echo, HTN, - eval and tx needed .
--- NOTE | 2018-11-30 11:50 | ASMTCMCOM ---
CM Note CM Note Notes: Patient admitted for recurrent falls, hx of Dementia. CM met with patient's to discuss care at home and possible needs upon d/c. Patient lives at home with with whom is her primary caregiver, daughter secondary caregiver. They live in a two-level home, daughter and son-in-law on one floor, patient and on another floor. has been patient's primary caregiver for many years and has no intention, at this point, to place her elsewhere. Will await therapy's input and have further discussion with family about assistance if warranted. CM will continue to follow. Plan: TBD - but likely d/c home back with family support. Date Signed: 11/30/2018 11:50 AM Electronically Signed By:Josi Giang RN
--- NOTE | 2018-11-30 13:01 | HOSPPROG ---
Hospitalist Progress Note Assessment/Plan: 83 yo F with hx of fronto temporal dementia, non verbal, as well as htn/hld presenting with several episodes of falling at home. First encounter, chart reviewed. # recurrent falls -hx of falling but more frequently -echo pending -tele show sinus -PT and OT -spoke w PT and her gait is steady, did stairs, she recommended the get a gait belt -per her , she does not even put her hands out when she falls, just falls forward -will ask for orthostatics to be done #open nasal fracture -evaluated by ENT -will further evaluate this afternoon -appreciate Ying PHIPPS #advance dementia -essentially is non verbal -her cares for her at home #HTN -bp very elevated and it may be due to pain -may need her Norvasc dose increased, but will place her on scheduled Tylenol ( she isn't able to tell me if she is hurting) #HLD -Atorvastatin #plan: cont monitoring overnight on telemetry, Dr Quezada to see her this evening, appreciate his involvement. Subjective: Melva stares and doesn't answer my questions. Objective: Vital Signs Temp Pulse Resp BP Pulse Ox 36.9 C 91 15 160/86 H 96 11/30/18 11:15 11/30/18 11:15 11/30/18 11:15 11/30/18 11:15 11/30/18 11:15 Laboratory Results 11/30/18 04:30 11/30/18 04:30 PT 12.1 SEC (12.0-15.0) 11/29/18 16:00 INR 0.87 (0.83-1.16) 11/29/18 16:00 - Physical Exam Constitutional: chronically ill appearing Eyes: PERRL, other (ecchymosis aroung the nasal bridge area, below her eye areas. ) Ears, Nose, Mouth, Throat: hearing normal Cardiovascular: regular rate and rhythym, tachycardia Respiratory: no respiratory distress Skin: warm Neurologic: other (alert but doesn't speak ) ICD10 Worksheet Patient Problems: Problems Problem Status Onset Fall Acute Nasal injury Acute Electrolyte abnormality Acute Elevated white blood cell count Acute Unable to walk Acute Weakness Acute
[2018-11-30] MEDS ORDERED: ACETAMINOPHEN 500 MG TAB PO SCH (16:00)
--- NOTE | 2018-11-30 16:48 | ECHO ---
[email or web address] [address] [address] Main: [phone] Fax: Transthoracic Echocardiogram Name: NISA SEPULVEDA MR#: [id number] Study Date: 11/30/2018 Study Time: 07:49 AM Date of : 1935 Age: 83 year(s) Height: 167.6 cm (66 in.) Weight: 81.65 kg (180 lb.) BSA: 1.91 m2 Gender: Female Examination: Echo Indication: Cardiac: syncope, Nasal Fracture, Dementia Image Quality: Contrast: Requested by: Paris Pradhan BP: 188 mmHg/106 mmHg Heart Rate: Rhythm: Tachycardia Indication: Cardiac: syncope, Nasal Fracture, Dementia Procedure Staff Stenotypist: Dax Pastrana RDCS Reading Physician: Aurelio Mortensen MD Requesting Provider: Conclusions: Normal size left ventricle. Normal global systolic LV function. EF is 74 %. No regional wall motion abnormality. Grade 1 diastolic dysfunction (abnormal relaxation). Trivial tricuspid valve regurgitation. There are no significant valvular abnormalities. Measurements: Chambers Valvular Assessment AV/MV Valvular Assessment TV/PV Normal Normal Normal Name Value Range Name Value Range Name Value Range Ao Robina (MM): 2.6 cm (2.2 cm-3.7 AV Vmax: 1.60 m/s (1 m/s-1.7 TR Vmax: 2.37 mm/s ( - ) cm) m/s) TR PGmax: 22 mmHg ( - ) IVSd (2D): 1.1 cm (0.6 cm-1.1 AV maxP mmHg ( - ) syst. PAP: 27 mmHg ( - ) cm) LVOT Vmax: 0.61 m/s (0.7 m/s-1.1 LVDd (2D): 4.1 cm (3.9 cm-5.3 m/s) cm) MV E Vmax: 0.73 m/s ( - ) LVDs (2D): 2.4 cm (2.1 cm-4 MV A Vmax: 1.07 m/s ( - ) cm) MV E/A: 0.68 ( - ) LVPWd (2D): 1.1 cm ( - ) LVEF (2D): 74 (>=54 %) Continued Measurements: Chambers Valvular Assessment AV/MV Valvular Assessment TV/PV Name Value Name Value Name Value LADs Lon.8 cm MV E' Septal: 0.05 m/s CVP (est.): 5 mmHg LA Area: 13.1 cm2 MV E/E' Septal: 13.60 Patient: NISA SEPULVEDA Study Date: 11/30/2018 Page 1 of 2 07:49 AM MV E/E' Lateral: 13.60 Findings: Left Ventricle: Normal size left ventricle. No LV hypertrophy. Normal global systolic LV function. EF is 74 %. No regional wall motion abnormality. Grade 1 diastolic dysfunction (abnormal relaxation). Right Ventricle: Normal size right ventricle. Normal RV function. Left Atrium: The left atrium is normal in size. Right Atrium: The right atrium is normal in size. Mitral Valve: The mitral valve is normal in appearance and function. There is no significant mitral valve regurgitation. Aortic Valve: There is no significant aortic valve regurgitation. No aortic valve stenosis is present. The aortic valve opens well. . Tricuspid Valve: The tricuspid valve is normal in appearance and function. Trivial tricuspid valve regurgitation. The pulmonary artery pressure is normal. Pulmonic Valve: The pulmonic valve is normal in appearance and function. There is no pulmonic regurgitation seen. Aorta: The aorta is normal. Pericardium: No pericardial effusion. Exam Comments: BH, THE PATIENT WAS SOMEWHAT CONFUSED AND COMBATIVE DURING THE EXAM, MARY JAIN. (No Signature Object) Patient: NISA SEPULVEDA Study Date: 11/30/2018 Page 2 of 2 07:49 AM [id number]
[2018-11-30] MEDS: ACETAMINOPHEN 500 MG TAB PO SCH (18:20)
--- NOTE | 2018-11-30 19:35 | GCON ---
IDENTIFYING DATA: This is an 83-year-old we are asked to see in consultation from the hospitalist. CHIEF COMPLAINT: Nasal fracture. HISTORY OF PRESENT ILLNESS: On 11/29/2018, the patient fell. It was from a standing height. She hi t her nose. We were asked to see her in consultation for a nasal fracture. She has been admitted to the hospital due to dementia issues by the hospitalist service. She has been seen in the emergency room. I have reviewed the history with MOISE Cali. I personally examined the patient and reviewed her head CT. PHYSICAL EXAM: She is in no acute distress. She is not communicative. Extraocular muscles are inta ct. PERRLA. EOMI. She has a small laceration over the bridge of the nasal dorsum that measures 1.5 cm or so. The bony dorsum is midline. Some swelling there. Anterior rhinoscopy shows no septal he matoma. Oral cavity and oropharynx showed mucosal lesions. Normal occlusions. Parotids are palpabl y benign. Neck without thyromegaly or lymphadenopathy. Head CT done on 11/29/2018 was personally reviewed and shows a nasal fracture. No other obvious bony fractures on the images we have of the bony facial skeleton. IMPRESSION: Nasal fracture. RECOMMENDATIONS: 1. It is really not displaced on exam. No intervention necessary. 2. From my standpoint, she can be discharged from the hospital. No followup necessary at this point . /[id number]/MODL
[2018-11-30] MEDS: traZODone 50 MG TAB PO SCH (21:46)
[2018-11-30] MEDS: DONEPEZIL HCL 5 MG TAB PO SCH (21:46)
[2018-12-01] MEDS: ACETAMINOPHEN 500 MG TAB PO SCH ×2 (03:49→12:06)
[2018-12-01] MEDS: amLODIPine BESYLATE 5 MG TAB PO SCH (07:33)
[2018-12-01] MEDS: MIRTAZAPINE 15 MG TAB PO SCH (07:34)
[2018-12-01] MEDS: ATORVASTATIN CALCIUM 20 MG TAB PO SCH (07:36)
[2018-12-01] MEDS: CHOLECALCIFEROL VIT D3 1,000 UNITS TAB PO SCH (07:36)
[2018-12-01] MEDS: MULTIVITAMINS 1 EACH TAB PO SCH (07:36)
[2018-12-01] MEDS ORDERED: amLODIPine BESYLATE 5 MG TAB PO SCH (09:44)
--- NOTE | 2018-12-01 09:46 | HOSPPROG ---
Hospitalist Progress Note Assessment/Plan: 83 yo F with hx of fronto temporal dementia, non verbal, as well as htn/hld presenting with several episodes of falling at home. # recurrent falls -hx of falling but more frequently -echo shows no LVH, ef of 74%, grade 1 diastolic dysfunction -tele show sinus -spoke w PT and her gait is steady, did stairs, she recommended the get a gait belt -per her , she does not even put her hands out when she falls, just falls forward -will ask for orthostatics to be done prior to dc -she could of been dehydrated but not clear of etiology of why she is falling # nasal fracture -evaluated by ENT -appreciate their input, no need for f/u #advance dementia -essentially is non verbal -her cares for her at home -concerned her dementia is severe and she may need higher care in the near future #HTN -bp very elevated /increased her home dose of Amlodipine #HLD -Atorvastatin #plan: dc home, the has good support from his daughter caring for Melva Subjective: Melva is non verbal Objective: Vital Signs Temp Pulse Resp BP Pulse Ox 37.1 C 93 17 178/93 H 93 12/01/18 07:30 12/01/18 07:30 12/01/18 07:30 12/01/18 07:30 12/01/18 07:30 Laboratory Results 12/01/18 04:36 12/01/18 04:36 11/30/18 12/01/18 12/02/18 05:59 05:59 05:59 Intake Total 640 Balance 640 PT 12.1 SEC (12.0-15.0) 11/29/18 16:00 INR 0.87 (0.83-1.16) 11/29/18 16:00 - Physical Exam Constitutional: no apparent distress, appears nourished Eyes: PERRL, other (ecchymosis below eyes > under left eye area, also on bridge of her nose) Cardiovascular: regular rate and rhythym Respiratory: no respiratory distress Skin: warm Neurologic: other (alert) ICD10 Worksheet Patient Problems: Problems Problem Status Onset Fall Acute Nasal injury Acute Electrolyte abnormality Acute Elevated white blood cell count Acute Unable to walk Acute Weakness Acute
--- NOTE | 2018-12-01 10:58 | ASMTLACE ---
LACE Length of stay for Answers: 2 days current admission Acuity / Level of Answers: Yes Care: Did the patient have an inpatient admission? Comorbidities - select Answers: Dementia all that apply Other Notes: HTN; HLD # of Emergency department Answers: 1-2 visits in the last 6 months Social determinants Answers: Mental health diagnosis (anxiety, depression, pers onality disorders, etc.) Score: 13 Date Signed: 12/01/2018 10:57 AM Electronically Signed By:CHACORTA Soliman
--- NOTE | 2018-12-01 11:26 | GDS ---
DISCHARGE DIAGNOSES: 1. Recurrent falls. 2. Nasal fracture. 3. Advanced dementia. 4. Hypertension. 5. Hyperlipidemia. CONSULTATION: Dr. Delta Quezada, an Ear, Nose, Throat specialist. Briefly, the patient is a very sweet lady who is 83 years old, who suffers from advanced dementia and no longer speaks. She is cared for by her . She presented to the emergency room after having a syncopal episode and landed on her face. She and her were out walking trails and because of her dementia, she did not put her hands out to break her fall. She fell directly on her face and lost consciousness for approximately 3 to 5 minutes. She was monitored on the shelter monitor and has been in sinus rhythm. Echocardiogram showed no LVH. She has grade 1 diastolic dysfunction with an EF of 74%. She had a head CT performed that showed a displaced nasal bone fracture. She was evaluated by ENT, who said that this was a nasal fracture, and she did not need any further followup. She will return home with her . I offered them home care. They do not feel that this is needed at this time. The patient's and his daughter are with her, assisted 24 hours a day. She was evaluated by Physical Therapy, who recommended a gait belt. I am unclear of exactly why she had a syncopal episode, but it could be that her dementia is so severe and affecting her. The would like her to return home because she feels safest there with him. HOSPITAL COURSE BY PROBLEM: 1. Gait instability with fall. She was evaluated by Physical Therapy. She can go up and down stairs. She is quite mobile. She is just not interactive. It could have been that she was dehydrated. This has happened before when she was dehydrated. 2. Nasal fracture. Evaluated by ENT physician. She needs no further followup. 3. Advanced dementia. She is essentially nonverbal. 4. Hypertension. I increased her amlodipine. The would prefer to follow up with the primary care provider. 5. Hyperlipidemia, on statin therapy. DISCHARGE CONDITION: Fair. Blood pressure is 178/93, heart rate of 93, respiratory rate of 17, O2 sats on room air 92%, temperature is 37.1 Celsius. MEDICATIONS AT DISCHARGE: Please see the EMR. DISCHARGE INSTRUCTIONS: 1. Recommending her continue treating her with Tylenol because she is unable to tell us if she is having pain. 2. To give her 1-/2 tabs of her amlodipine at home; this will equal 7.5 mg. Follow up with her primary care provider. 3. To get a gait belt to help avoid falls. 4. To make sure she stays well hydrated. /[id number]/MODL MTDD
--- NOTE | 2018-12-01 11:30 | ASMTCMCOM ---
CM Note CM Note Notes: Pts case discussed w/ Ksenia Underwood NP and BIBI Thurman. Pt is being d/c'd today. PT is recommending home w/ 24hr supervision. OT is recommending home. 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 No other needs at this time. CM available for changes. Plan: Independent Date Signed: 12/01/2018 11:29 AM Electronically Signed By:CHACORTA Soliman
[2018-12-01 11:56] VITALS: BP 146/84
== END 2018-12-01 12:35 | disposition home or self-care (01) | DRG 156 ==
LOC: OBSVTOIN 16:05 → F3N 18:04
PROVIDERS: ADMIT Internal Medicine; ATTEND Internal Medicine
DX: S02.2XXB Fracture of nasal bones, initial encounter for open fracture (principal); W18.39XA Other fall on same level, initial encounter; Y92.838 Other recreation area as the place of occurrence of the external cause; R55 Syncope and collapse; E86.0 Dehydration; R29.6 Repeated falls; F03.90 Unspecified dementia, unspecified severity, without behavioral disturbance, psychotic disturbance, mood disturbance, and anxiety; I10 Essential (primary) hypertension; E78.5 Hyperlipidemia, unspecified; Z66 Do not resuscitate
CPT/HCPCS: 96374; 97162-GP; 97166-GO; J0360; J2060